=== PATIENT | male | born 1960 | race African-American/Black ===

== ENCOUNTER 2019-10-02 12:59 | Inpatient (IN) | payer BC, OTHER ==
[~2019-10-02] VITALS: Ht 175.3 cm; Wt 96.7 kg
[2019-10-02 13:51] LABS: Basophils # (auto) 0 10 ^3/uL (0-0.2); Basophils % (auto) 0.6 % (0.0-2.0); Eosinophils # (auto) 0.1 10 ^3/uL (0-0.8); Eosinophils % (auto) 2.3 % (0.0-7.0); Hematocrit 40.1 % (41.0-53.0); Hemoglobin 13.1 g/dL (13.5-17.5); Lymphocytes % (auto) 26.5 % (10.0-50.0); Mean Corpuscular Hemoglobin 27.8 pg (28.0-32.0); Mean Corpuscular Hgb Conc. 32.7 g/dL (32.0-36.0); Mean Corpuscular Volume 85.3 fL (80.0-100.0); Monocytes # (auto) 0.3 10 ^3/uL (0-1.3); Monocytes % (auto) 7.6 % (0.0-12.0); Neutrophils # (auto) 2.5 10 ^3/uL (1.6-8.6); Platelet Count (auto) 258 10^3/uL (140-450); Red Cell Distribution Width 15.2 % (11.8-14.3); White Blood Cell 3.9 10^3/uL (4.4-10.8)
[2019-10-02 14:05] LABS: INR 1.18 (0.9-1.15)
[2019-10-02 14:07] LABS: Albumin 3.4 g/dL (3.4-5.0); Anion Gap 8 (5-15); Blood Urea Nitrogen 14 mg/dL (7-18); Calcium 8.7 mg/dL (8.5-10.1); Carbon Dioxide 26 mmol/L (21-32); Chloride 108 mmol/L (98-107); Glucose 101 mg/dL (74-106); Sodium 142 mmol/L (136-145)
[2019-10-02 14:13] LABS: Alanine Aminotransferase 49 U/L (16-61); Alkaline Phosphatase 75 U/L (45-117); Aspartate Aminotransferase 38 U/L (15-37); BUN/Creatinine Ratio 12.6; Bilirubin, Total 0.8 mg/dL (0.2-1.0); GFR African American 88 mL/min; GFR Non-African American 72 mL/min; Total Protein 6.9 g/dL (6.4-8.2)
[2019-10-02] MEDS ORDERED: LORazepam 2MG/ML-1ML VIAL IV ONE (17:00)
[2019-10-02] MEDS ORDERED: LORazepam 0.5 MG TAB PO PRN (18:00)
[2019-10-02] MEDS ORDERED: traMADol HCL 50 MG TAB PO PRN (18:00)
[2019-10-02] MEDS ORDERED: PROMETHAZINE HCL 25 MG/ML 1ML IV PRN (18:00)
[2019-10-02] MEDS ORDERED: NITROGLYCERIN 0.4 MG SL TAB SL PRN (18:00)
[2019-10-02] MEDS ORDERED: MORPHINE SULF INJ 2 MG/ML SYRINGE 1ML IV PRN ×2 (18:00)
[2019-10-02] MEDS ORDERED: ACETAMINOPHEN 500 MG TAB PO PRN (18:00)
[2019-10-02] MEDS ORDERED: LACTULOSE 20Gm/30ML SOLN PO PRN (18:00)
[2019-10-02] MEDS: ENOXAPARIN SOD 40 MG/0.4 ML SYRINGE SC SCH (18:29)
--- NOTE | 2019-10-02 20:57 | NUR ---
Telemetry admit from ER SAQIBFLORENTINO admitted to Telemetry unit after SBAR received. Patient oriented to Elizabeth Mccann, primary RN, unit, room, bed, and unit policies regarding patient care and visiting hours. Patient now on continuous telemetry monitoring, tele box # 30 and telemetry reading on arrival to unit is SR . Patient weighed by bed scale and encouraged to call if they need something. All questions and concerns addressed, patient verbalized understanding. PATIENT CALM AND RESTING IN BED, BED IN LOWEST POSITION WITH SIDE RALES UP X2, AND CALL LIGHT WITHIN REACH.
[2019-10-02 21:00] VITALS: BP 106/79
[2019-10-02 22:00] VITALS: BP 106/74
[2019-10-02] MEDS ORDERED: SILD50TA42 PO (22:22)
[2019-10-02] MEDS ORDERED: VALS80TA44 PO (22:22)
[2019-10-02] MEDS ORDERED: RIV20T PO (22:26)
[2019-10-02] MEDS ORDERED: HYD25TP PR (22:26)
[2019-10-02] MEDS ORDERED: POM (22:26)
[2019-10-02] MEDS ORDERED: CLOTCRE3 EX (22:26)
[2019-10-02] MEDS ORDERED: FEBU40TA PO (22:26)
[2019-10-02] MEDS: CARVEDILOL 3.125 MG TAB PO SCH (22:38)
[2019-10-02] MEDS: SODIUM CHLOR 0.9% PF (SALINE LOCK) 10ML VIAL/SYR IV SCH (22:38)
[2019-10-02] MEDS: TEMAZEPAM 15 MG CAP PO PRN (22:38)
[2019-10-03 05:00] VITALS: BP 91/60
[2019-10-03] MEDS: SODIUM CHLOR 0.9% PF (SALINE LOCK) 10ML VIAL/SYR IV SCH ×3 (05:21→22:07)
[2019-10-03 09:00] VITALS: BP 94/63
[2019-10-03] MEDS ORDERED: ENOXAPARIN SOD 40 MG/0.4 ML SYRINGE SC SCH (10:00)
[2019-10-03] MEDS ORDERED: ENALAPRIL MALEATE 2.5 MG TAB PO SCH (10:00)
[2019-10-03] MEDS ORDERED: FUROSEMIDE 40 MG/4 ML VIAL IV SCH (10:00)
[2019-10-03] MEDS ORDERED: POTASSIUM CHL 20 Meq TABLET PO SCH (10:00)
[2019-10-03] MEDS: CARVEDILOL 3.125 MG TAB PO SCH (10:18)
[2019-10-03] MEDS: ASPirin 81 mg TAB PO SCH (10:18)
[2019-10-03] MEDS: ENOXAPARIN SOD 40 MG/0.4 ML SYRINGE SC SCH (10:19)
--- NOTE | 2019-10-03 12:35 | NUR ---
Charlie SMITH AT BEDSIDE INFORMED OF PATIENT STATUS INCLUDING DECREASED BLOOD PRESSURE. RECEIVED NEW ORDERS. SEE EMAR.
[2019-10-03 13:00] VITALS: BP 88/63
[2019-10-03] MEDS ORDERED: FUROSEMIDE 20 MG/2 ML VIAL IV ONE (13:45)
[2019-10-03] MEDS: ALBUMIN 25% 50 ML IV SCH ×2 (14:57→22:07)
--- NOTE | 2019-10-03 16:00 | NUR ---
PATIENT OUT IN HALLWAY IN WHEELCHAIR. STATED HE WAS FEELING CLAUSTROPHOBIC.
[2019-10-03 17:00] VITALS: BP 101/53
[2019-10-03] MEDS: FUROSEMIDE 100 MG/10ML VIAL IV SCH (17:29)
[2019-10-03] MEDS: POTASSIUM CHL 20 Meq TABLET PO SCH (17:37)
[2019-10-03] MEDS ORDERED: RIVAROXABAN 20 MG TAB PO SCH (18:00)
--- NOTE | 2019-10-03 19:30 | NUR ---
Opening Shift Note Assumed care of patient, awake and alert. No S/S of distress/SOB or pain. Insructed on POC and to callfor assist PRN, will continue to monitor for changes Q1hr and PRN. Fall and safety precautions in place. Call light within reach.
[2019-10-03 21:38] VITALS: BP 98/59
[2019-10-03] MEDS: TEMAZEPAM 15 MG CAP PO PRN (22:07)
[2019-10-04 05:00] VITALS: BP 104/75
[2019-10-04] MEDS: SODIUM CHLOR 0.9% PF (SALINE LOCK) 10ML VIAL/SYR IV SCH ×3 (05:58→22:38)
[2019-10-04] MEDS: ALBUMIN 25% 50 ML IV SCH ×3 (05:58→22:37)
[2019-10-04] MEDS: POTASSIUM CHL 20 Meq TABLET PO SCH ×2 (05:58→17:30)
[2019-10-04] MEDS: FUROSEMIDE 100 MG/10ML VIAL IV SCH ×2 (05:59→17:30)
[2019-10-04 07:17] LABS: BUN/Creatinine Ratio 13.3; Calcium 8.9 mg/dL (8.5-10.1); Potassium 3.4 mmol/L (3.5-5.1)
[2019-10-04 09:00] VITALS: BP 103/60
[2019-10-04] MEDS ORDERED: CARVEDILOL 3.125 MG TAB PO SCH (10:00)
[2019-10-04] MEDS ORDERED: ENALAPRIL MALEATE 2.5 MG TAB PO SCH (10:00)
[2019-10-04] MEDS: ASPirin 81 mg TAB PO SCH (10:03)
[2019-10-04 13:00] VITALS: BP 96/68
[2019-10-04 17:00] VITALS: BP 114/65
[2019-10-04] MEDS: CARVEDILOL 3.125 MG TAB PO SCH (22:00)
--- NOTE | 2019-10-04 22:00 | NUR ---
MEDICATION HELD Scheduled 2200 Coreg held per MD Landeros's progress note from 10/03/18, stating "Given his blood pressure is low, I will go ahead and hold his RUIZ inhibitor and Coreg." Medication not administered (see emar). Will continue to monitor
[2019-10-04 22:06] VITALS: BP 106/63
[2019-10-04] MEDS: TEMAZEPAM 15 MG CAP PO PRN (22:39)
[2019-10-05] MEDS: ALBUMIN 25% 50 ML IV SCH (05:17)
[2019-10-05] MEDS: SODIUM CHLOR 0.9% PF (SALINE LOCK) 10ML VIAL/SYR IV SCH ×2 (05:17→14:00)
[2019-10-05] MEDS: FUROSEMIDE 100 MG/10ML VIAL IV SCH ×2 (05:17→18:10)
[2019-10-05] MEDS: POTASSIUM CHL 20 Meq TABLET PO SCH ×2 (05:18→18:10)
[2019-10-05 06:16] LABS: Basophils # (auto) 0 10 ^3/uL (0-0.2); Basophils % (auto) 0.8 % (0.0-2.0); Eosinophils # (auto) 0.2 10 ^3/uL (0-0.8); Eosinophils % (auto) 3.9 % (0.0-7.0); Hematocrit 39.1 % (41.0-53.0); Hemoglobin 12.8 g/dL (13.5-17.5); Lymphocytes # (auto) 1.1 10 ^3/uL (0.4-5.4); Lymphocytes % (auto) 20.7 % (10.0-50.0); Mean Corpuscular Hemoglobin 27.8 pg (28.0-32.0); Mean Corpuscular Hgb Conc. 32.8 g/dL (32.0-36.0); Mean Corpuscular Volume 84.7 fL (80.0-100.0); Monocytes # (auto) 0.3 10 ^3/uL (0-1.3); Monocytes % (auto) 5.5 % (0.0-12.0); Neutrophils # (auto) 3.7 10 ^3/uL (1.6-8.6); Neutrophils % (auto) 69.1 % (37.0-80.0); Nucleated Red Blood Cells % 0.1 %; Platelet Count (auto) 259 10^3/uL (140-450); Red Blood Cells 4.62 10^6/uL (4.5-5.90); Red Cell Distribution Width 14.7 % (11.8-14.3); White Blood Cell 5.4 10^3/uL (4.4-10.8)
[2019-10-05 06:25] LABS: INR 1.12 (0.9-1.15)
--- NOTE | 2019-10-05 08:00 | NUR ---
initial assessment complete. to CCL
[2019-10-05 09:25] VITALS: BP 99/71
[2019-10-05] MEDS ORDERED: LIDOCAINE 2%HCL (LOCAL ANESTH.) INJ 20ML MDV ONE (09:33)
[2019-10-05] MEDS ORDERED: IODIXANOL 320MG/ML 100ML BTL IV ONE ×2 (09:33→10:08)
[2019-10-05] MEDS ORDERED: ANGIOMAX 250 MG VIAL IV ONE (09:46)
[2019-10-05] MEDS ORDERED: VERAPAMIL 2.5MG/ML INJ 2ML VIAL IV ONE (09:46)
[2019-10-05] MEDS ORDERED: SODIUM CHL 0.9% 0 ML ONE (09:47)
[2019-10-05] MEDS ORDERED: MIDAZOLAM HCL 1MG/1ML-2 ML VIAL ONE (09:47)
[2019-10-05] MEDS ORDERED: fentaNYL CITRATE 100 MCG/2 ML VL ONE (09:47)
[2019-10-05] MEDS: CARVEDILOL 3.125 MG TAB PO SCH (10:00)
[2019-10-05] MEDS: ASPirin 81 mg TAB PO SCH (10:00)
[2019-10-05] MEDS ORDERED: HEPARIN SODIUM (PORCINE) 5000 UNITS/ML 1ML VIAL ONE (10:10)
--- NOTE | 2019-10-05 11:13 | NUR ---
RETURNS FROM CCL. RN REPORTS CLEAN CORONARIES. VASC BAND IN PLACE TO RT WRIST. STABLE. PALPATED SOFT AROUND ALL BORDERS. DENIES PAIN. EXPLAINED WRIST RESTRICTIONS.
--- NOTE | 2019-10-05 12:30 | NUR ---
RT RADIAL BAND CONTINUES STABLE. NO COMPLAINTS. TOLERATING MEAL.
--- NOTE | 2019-10-05 13:30 | NUR ---
RT RADIAL BAND RELEASED IN INCREMENTS PER PROTOCOL. SITE BENIGN COVERED WITH OCCLUSIVE DSG. TEACHING RE RESTRICTIONS AND HOW TO RESPOND IF COMPROMISED.
[2019-10-05 14:39] VITALS: BP 108/69
[2019-10-05] MEDS ORDERED: CARV3.1240 PO (15:20)
[2019-10-05] MEDS ORDERED: VALS80TA44 PO (15:20)
[2019-10-05 17:27] VITALS: BP 108/69
--- NOTE | 2019-10-05 19:20 | NUR ---
dc instructions provided. 1800 lasix given. pt request to dc home after effects of lasix pass. 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
--- NOTE | 2019-10-05 19:30 | NUR ---
Opening Shift Note Assumed care of patient, awake and alert. No S/S of distress/SOB or pain. Instructed on POC and to call for assist PRN, will continue to monitor for changes Q1hr and PRN. Fall and safety precautions in place. Call light within reach. Signed: 10/06/19 at 0018 by DELLA MEEK SN <Co-Signature Required> Co-Signed: 10/06/19 at 0018 by Evangelina Allen RN RN
--- NOTE | 2019-10-05 21:26 | NUR ---
Discharge Discharge instructions given as ordered by day shift RN. Encourage to follow up with PMD as instructed. All questions and concerns addressed. Patient verbalized understanding. IV removed with catheter intact, pressure dressing applied. Telemetry unit returned to ICU. Patient taken to vehicle via wheelchair with all personal belongings, accompanied by staff and family member. No distress noted at time of departure. Signed: 10/06/19 at 0020 by DELLA MEEK SN <Co-Signature Required> Co-Signed: 10/06/19 at 0020 by Evangelina Allen RN RN
== END 2019-10-05 21:26 | disposition home or self-care (01) | DRG 287 ==
LOC: ER 12:59 → TELE 13:00 → TELE-CENTR 20:52
PROVIDERS: ADMIT Internal Medicine; ATTEND Hospitalist
PROC: 4A023N7 Measurement of Cardiac Sampling and Pressure, Left Heart, Percutaneous Approach (ICD-10-PCS; principal; 2019-10-05)
PROC: B211YZZ Fluoroscopy of Multiple Coronary Arteries using Other Contrast (ICD-10-PCS; 2019-10-05)
DX: I11.0 Hypertensive heart disease with heart failure (principal); I50.43 Acute on chronic combined systolic (congestive) and diastolic (congestive) heart failure; I42.0 Dilated cardiomyopathy; E78.5 Hyperlipidemia, unspecified; F41.1 Generalized anxiety disorder; I44.7 Left bundle-branch block, unspecified; Z20.828 Contact with and (suspected) exposure to other viral communicable diseases; Z79.01 Long term (current) use of anticoagulants; Z82.49 Family history of ischemic heart disease and other diseases of the circulatory system; Z86.718 Personal history of other venous thrombosis and embolism
CPT/HCPCS: 36415; 71045; 80048; 80053; 82550; 82728; 83735; 83880; 84443; 84484; 85025; 85379; 85610; 85730; 87070; 87804; 87880; 93005; 93306; 93458; 97163; 99152; G0378; J2250; Q9967